=== PATIENT | female | born 1990 | race African-American/Black ===

== ENCOUNTER 2016-12-07 19:53 | Emergency (ER) | payer SELFPAY ==
[~2016-12-07 19:53] MED LIST: DICL50TA3 PO; METH750T2 PO
[2016-12-07 20:11] VITALS: BP 118/68; PULSE 92; RESP 20; TEMP 99; O2SAT 99
--- NOTE | 2016-12-07 21:19 | PD ---
HPI Chief Complaint: Vulnerability Assessment Analyst Problem/Complaint Time Seen by Provider: 21:03 Travel History International Travel<30 days: No Contact w/Intl Traveler<30days: No Traveled to known affect area: No History of Present Illness HPI 26-year-old Afro-[place]ian female presents the emergency department with vaginal discomfort comfort, burning, and small amount of vaginal discharge. Patient was recently treated for vaginal yeast infection with intravaginal Monistat called in by her MANAGER SCIENCE. Patient states her symptoms seemed to improve, and she stopped them 4 days ago. Symptoms have now worsened in the last few days. She denies sexual intercourse in over a year. Patient denies urinary symptoms or nausea, vomiting, or flank pain. She denies specific abdominal discomfort. She denies any rash. No known drug allergies. PFSH Past Medical History Diminished Hearing: No Tetanus Vaccination: Unknown Influenza Vaccination: No ?: Unknown LMP: 08 26 17 : 2 Para: 0 Miscarriage: 1 : 1 Dilation and Curettage (D&C): Yes Past Surgical History Gynecologic Surgery: Yes (D&C) Social History Alcohol Use: Yes (OCC) Tobacco Use: No Substance Use: No Allergies-Medications (Allergen,Severity, Reaction): Coded Allergies: No Known Allergies (Verified , 12/07/16) Reported Meds & Prescriptions Reported Meds & Active Scripts Active Diflucan (Fluconazole) 150 Mg Tab 150 Mg PO ONCE Review of Systems Except as stated in HPI: all other systems reviewed are Neg General / Constitutional: No: Fever, Chills Eyes: No: Visual changes HENT: No: Headaches Cardiovascular: No: Chest Pain or Discomfort Respiratory: No: Shortness of Breath Gastrointestinal: No: Abdominal Pain Genitourinary: Positive: Discharge, Other (vaginal discomfort and burning), No : Dysuria, Vaginal Bleeding Musculoskeletal: No: Pain Skin: No Rash Neurologic: No: Weakness Psychiatric: No: Depression Endocrine: No: Polydipsia Hematologic/Lymphatic: No: Easy Bruising Physical Exam Narrative GENERAL: Patient appears in no acute distress. SKIN: Warm and dry. Normal color. Normal turgor. HEAD: Atraumatic. Normocephalic. EYES: Pupils equal and round. No scleral icterus. No injection or drainage. ENT: No nasal bleeding or discharge. Mucous membranes pink and moist. NECK: Trachea midline. Supple and nontender. CARDIOVASCULAR: Regular rate and rhythm. RESPIRATORY: No accessory muscle use. Clear to auscultation. Breath sounds equal bilaterally. GASTROINTESTINAL: Abdomen soft, non-tender, nondistended. Hepatic and splenic margins not palpable. PELVIC: Outer genitalia appear normal. There is no rash or erythema or swelling. Pelvic exam performed with nursing staff recycling assistant shows both yellowish and white discharge and generalized discomfort. No friable tissue is noted. Bimanual was not performed. Wet prep and urinalysis were collected. MUSCULOSKELETAL: Extremities without clubbing, cyanosis, or edema. No obvious deformities. NEUROLOGICAL: Awake and alert. No obvious cranial nerve deficits. Motor grossly within normal limits. Five out of 5 muscle strength in the arms and legs. Normal speech. PSYCHIATRIC: Appropriate mood and affect; insight and judgment normal. Data Data Last Documented VS Vital Signs Date Time Temp Pulse Resp B/P (MAP) Pulse Ox O2 Delivery O2 Flow Rate FiO2 12/07/16 21:01 88 18 12/07/16 20:11 99.0 118/68 (85) 99 Orders Orders Wet Prep Profile (12/07/16 21:28) Urinalysis - C+S If Indicated (12/07/16 21:28) Ed Urine Pregnancytest Poc (12/07/16 21:28) Gc And Chlamydia Pcr (12/07/16 22:12) Fluconazole (Diflucan) (12/07/16 22:15) Labs Laboratory Tests Test 12/07/16 21:30 Urine Color YELLOW Urine Turbidity CLEAR Urine pH 6.0 Urine Specific [place] 1.026 Urine Protein NEG mg/dL Urine Glucose (UA) NEG mg/dL Urine Ketones TRACE mg/dL Urine Occult Blood TRACE Urine Nitrite NEG Urine Bilirubin NEG Urine Leukocyte Esterase NEG Urine RBC 0-3 /hpf Urine WBC 3-5 /hpf Urine Squamous Epithelial Cells 0-5 /hpf Urine Bacteria FEW /hpf Microscopic Urinalysis Comment CULT NOT INDICATED Clue Cells (Wet Prep) NONE SEEN Vaginal Trichomonas (Wet Prep) NONE SEEN Vaginal Yeast (Wet Prep) NONE SEEN MDM Medical Decision Making Medical Screen Exam Complete: Yes Emergency Medical Condition: Yes Medical Record Reviewed: Yes Differential Diagnosis Vaginal discomfort. Vaginal discharge. Vaginal yeast. Acute vaginosis. Possible medication reaction. Narrative Course Patient is medically stable at time of exam. Urinalysis is obtained and sent to the lab. Urine is performed and is negative. Wet prep was sent to the lab. Wet prep was negative. GC and chlamydia is sent to the lab but will only be treated if positive. Patient is felt to have possible reaction to the Monistat and continued vaginal yeast infection. Patient will be treated with Diflucan 150 mg by mouth now. Patient is given a prescription for Diflucan 150 mg to be taken if not improved in the next 3 days. Patient is to follow-up regarding the GC chlamydia probe as well as follow-up with her sail finisher hand next week to ensure improvement. Patient should return to emergency Department with worsening abdominal tenderness or fever as discussed. Diagnosis Primary Impression: Vaginal discomfort Referrals: Radiology Practitioner Assistant Patient Instructions: General Instructions, Vulvovaginal Candidiasis (ED) Additional Instructions: Wet prep was negative. GC and chlamydia is sent to the lab but will only be treated if positive. Patient is felt to have possible reaction to the Monistat and continued vaginal yeast infection. Patient will be treated with Diflucan 150 mg by mouth now. Patient is given a prescription for Diflucan 150 mg to be taken if not improved in the next 3 days. Patient is to follow-up regarding the GC chlamydia probe as well as follow-up with her sail finisher hand next week to ensure improvement. Patient should return to emergency Department with worsening abdominal tenderness or fever as discussed. Med/Other Pt SpecificInfo: Prescription(s) given Scripts Fluconazole (Diflucan) 150 Mg Tab 150 MG PO ONCE for Infection, #1 TAB 1 Refill Prov: Ino Benavides MD 12/07/16 Disposition: 01 DISCHARGE HOME Condition: Stable Suresh Baker Dec 07, 2016 21:18
[2016-12-07 21:53] LABS: BLOOD, URINE TRACE (NEG); GLUCOSE,URINE NEG (NEG); KETONE, URINE TRACE mg/dL (NEG); NITRITE,URINE NEG (NEG)
[2016-12-07 21:58] LABS: BACTERIA, URINE FEW /hpf; COMMENT (UR) CULT NOT INDICATED; CULTURE IF INDICATED CULT NOT INDICATED; RBC, URINE 0-3 /hpf (0-3); SQUAMOUS EPITHELIAL CELL URINE 0-5 /hpf (0-5); URINE COLOR YELLOW (YELLW/STRAW)
[2016-12-07] MEDS ORDERED: DIFL150T PO (22:13)
[2016-12-07] MEDS ORDERED: FLUCONAZOLE 100 MG TAB PO ONE (22:15)
[2016-12-07 22:31] VITALS: BP 120/66; PULSE 88; RESP 18; O2SAT 98
[2016-12-08 03:21] LABS: CHLAMYDIA PCR NOT DETECTED (NOT DETECT); NEISSERIA PCR NOT DETECTED (NOT DETECT)
== END 2016-12-07 22:51 | disposition home or self-care (01) ==
LOC: PHED 19:53
DX: N89.8 Other specified noninflammatory disorders of vagina (principal)
CPT/HCPCS: 81001; 84703; 87210; 87491; 87591; 99284